=== PATIENT | male | born 1950 | race Caucasian/White ===

== ENCOUNTER 2025-03-11 21:42 | Inpatient (IN) | payer MEDICARE ==
[2025-03-11 22:29] LABS: #Basophils 0.04 10x3/uL (0.0-0.2); #Eosinophils 0.79 10x3/uL (0.0-0.5); #Monocytes 0.89 10x3/uL (0.0-1.1); #Neutrophils 5.50 10x3/uL (1.5-8.4); %Basophils 0.4 % (0.0-2.0); %Eosinophils 8.8 % (0.0-6.0); %Lymphocytes 19.5 % (18.0-47.0); %Monocytes 9.9 % (0.0-10.0); %Neutrophils 61.1 % (40.0-75.0); Hematocrit 38.6 % (38.8-50.0); Hemoglobin 12.9 g/dL (13.5-17.5); Mean Corpuscular Hemoglobin 31.6 pg (27.0-33.0); Mean Corpuscular Volume 94.6 fL (81.2-95.1); Platelet Count 158 10x3/uL (150-450); Red Blood Cell (RBC) Count 4.08 10x6/uL (4.32-5.72); White Blood Cell (WBC) Count 9.01 10x3/uL (3.5-10.5)
[2025-03-11 22:41] LABS: INR-International Normal Ratio 1.0; PTT 25.4 sec (22.0-33.0); Prothrombin Time 11.4 sec (9.5-12.1)
[2025-03-11] MEDS ORDERED: Amiodarone In Dextrose 200 ML ONE (22:45)
[2025-03-11 22:47] LABS: ALT (SGPT) 39 U/L (Less than 45); AST (SGOT) 20 U/L (11-34); Albumin 3.5 g/dL (3.1-4.5); Alkaline Phosphatase 53 U/L (40-110); Anion Gap 12 mmol/L (10-20); BUN (Urea Nitrogen) 17 mg/dL (8.4-25.7); Bilirubin, Total 0.5 mg/dL (0.3-1.2); Calc. Creatinine Clearance 0 mL/min (70-130); Calcium 8.8 mg/dL (7.8-10.44); Carbon Dioxide 22 mmol/L (23-31); Chloride 111 mmol/L (98-107); Globulin 2.6 g/dL (2.4-3.5); Glucose 88 mg/dL (83-110); Magnesium 2.0 mg/dL (1.6-2.6); Potassium 3.8 mmol/L (3.5-5.1); Sodium 141 mmol/L (136-145)
[2025-03-11 22:54] LABS: Troponin I 0.801 ng/mL (< 0.028)
[2025-03-11] MEDS ORDERED: Ondansetron PF 4 MG/2 ML Vial IVP PRN (23:42)
[2025-03-11] MEDS ORDERED: Calcium Carbonate 500 MG ChewTAB PO PRN (23:42)
[2025-03-11] MEDS ORDERED: Acetaminophen 325 MG TAB PO PRN (23:42)
[2025-03-11] MEDS ORDERED: Senokot S 8.6-50 MG TAB PO PRN (23:42)
[2025-03-11] MEDS ORDERED: Electrolyte Replacement Protocol 1 EACH FS SCH (23:45)
[2025-03-12] MEDS ORDERED: Potassium Chloride 20 MEQ in Premix 1 BAG IVPB PRN (00:45)
[2025-03-12] MEDS ORDERED: PHOS-NAK 1 PKT PACK PO PRN (00:45)
[2025-03-12] MEDS ORDERED: Magnesium Sulfate In Water 4 GM in Premix 1 BAG IVPB PRN (00:45)
[2025-03-12] MEDS ORDERED: Magnesium 2 GM/50 ML BAG (IN WATER) ONE (00:54)
[2025-03-12] MEDS: Magnesium 2 GM/50 ML(in water) 2 GM in Premix 1 BAG IVPB SCH (01:02)
[2025-03-12 01:45] VITALS: BP 113/72; TEMP 97.9
[2025-03-12] MEDS ORDERED: Amiodarone In Dextrose 360 MG in Premix 1 BAG IVPB SCH (02:00)
[2025-03-12 02:08] LABS: Troponin I 0.987 ng/mL (< 0.028)
[2025-03-12] MEDS ORDERED: Amiodarone In Dextrose 200 ML ONE (03:47)
[2025-03-12 04:59] LABS: Troponin I 0.953 ng/mL (< 0.028)
[2025-03-12 06:45] LABS: Platelet Count 145 10x3/uL (150-450)
[2025-03-12 06:46] LABS: #Basophils 0.04 10x3/uL (0.0-0.2); #Eosinophils 0.74 10x3/uL (0.0-0.5); #Monocytes 0.86 10x3/uL (0.0-1.1); #Neutrophils 4.27 10x3/uL (1.5-8.4); %Basophils 0.5 % (0.0-2.0); %Eosinophils 9.8 % (0.0-6.0); %Lymphocytes 21.3 % (18.0-47.0); %Monocytes 11.4 % (0.0-10.0); %Neutrophils 56.6 % (40.0-75.0); Hematocrit 36.3 % (38.8-50.0); Hemoglobin 12.0 g/dL (13.5-17.5); Mean Corpuscular Hemoglobin 31.8 pg (27.0-33.0); Mean Corpuscular Volume 96.3 fL (81.2-95.1); Red Blood Cell (RBC) Count 3.77 10x6/uL (4.32-5.72); White Blood Cell (WBC) Count 7.55 10x3/uL (3.5-10.5)
[2025-03-12 06:54] LABS: ALT (SGPT) 32 U/L (Less than 45); AST (SGOT) 21 U/L (11-34); Albumin 3.3 g/dL (3.1-4.5); Alkaline Phosphatase 48 U/L (40-110); Anion Gap 9 mmol/L (10-20); BUN (Urea Nitrogen) 15 mg/dL (8.4-25.7); Bilirubin, Total 0.4 mg/dL (0.3-1.2); Calc. Creatinine Clearance 0 mL/min (70-130); Calcium 8.4 mg/dL (7.8-10.44); Carbon Dioxide 23 mmol/L (23-31); Chloride 111 mmol/L (98-107); Globulin 2.4 g/dL (2.4-3.5); Glucose 105 mg/dL (83-110); Magnesium 2.3 mg/dL (1.6-2.6); Potassium 4.1 mmol/L (3.5-5.1); Sodium 139 mmol/L (136-145)
[2025-03-12] MEDS ORDERED: Furosemide 40 MG (4 mL) VIAL ONE (08:42)
[2025-03-12] MEDS ORDERED: Pantoprazole 40 MG DR.TAB ONE (08:43)
[2025-03-12] MEDS: Furosemide 40 MG (4 mL) VIAL SLOW IVP SCH (08:45)
[2025-03-12] MEDS: Pantoprazole 40 MG DR.TAB PO SCH (08:54)
[2025-03-12] MEDS: Carvedilol 3.125 MG TAB PO SCH (08:54)
[2025-03-12] MEDS: Sacubitril 24MG/Valsartan 26 MG TAB PO SCH (08:55)
[2025-03-12] MEDS ORDERED: Rosuvastatin 20 MG TAB PO SCH (21:00)
[2025-03-13] MEDS ORDERED: Furosemide 40 MG (4 mL) VIAL SLOW IVP SCH (09:00)
== END 2025-03-12 14:42 | disposition home or self-care (01) | DRG 281 ==
LOC: SUATTDRO 21:42 → CSHERS 21:42 → CSHERHOLD 23:40
PROVIDERS: ADMIT Internal Medicine; ATTEND Student in an Organized Health Care Education/Training Program
DX: I47.19 Other supraventricular tachycardia (principal); I50.22 Chronic systolic (congestive) heart failure; I21.4 Non-ST elevation (NSTEMI) myocardial infarction; E78.5 Hyperlipidemia, unspecified; I25.10 Atherosclerotic heart disease of native coronary artery without angina pectoris; Z95.1 Presence of aortocoronary bypass graft; I11.0 Hypertensive heart disease with heart failure; Z95.810 Presence of automatic (implantable) cardiac defibrillator; K21.9 Gastro-esophageal reflux disease without esophagitis; Z98.61 Coronary angioplasty status; Z80.1 Family history of malignant neoplasm of trachea, bronchus and lung; Z83.0 Family history of human immunodeficiency virus [HIV] disease; Z79.899 Other long term (current) drug therapy; E66.9 Obesity, unspecified
CPT/HCPCS: 36415; 71045; 80053; 83735; 83880; 84100; 84443; 84484; 85025; 85610; 85730; 93005; 94760; J0282; J0283; J1940; J3475